=== PATIENT | female | born 1940 | race Caucasian/White ===

== ENCOUNTER 2019-07-26 12:00 | Outpatient (CLI) | payer MEDICARE, OTHER ==
[~2019-07-26] VITALS: Ht 149.9 cm; Wt 69.5 kg
[2019-07-26 12:05] VITALS: BP 167/76
[2019-07-26] MEDS ORDERED: IRON SUCROSE 25 MG in NS 50 ML IV ONE (12:45)
[2019-07-26] MEDS ORDERED: IRON SUCROSE 175 MG in NS 100 ML IV ONE (12:45)
[2019-07-26 12:55] VITALS: BP 132/61
[2019-07-26 13:45] VITALS: BP 127/60
[2019-07-26] MEDS ORDERED: BUME2TAB3 PO (14:16)
[2019-07-26] MEDS ORDERED: ADCI20TA PO (14:16)
[2019-07-26] MEDS ORDERED: PANT40TA3 PO (14:17)
[2019-07-26] MEDS ORDERED: D3400CAP PO (14:17)
[2019-07-26] MEDS ORDERED: PRAV40TA2 PO (14:17)
[2019-07-26] MEDS ORDERED: FERR325T3 PO (14:19)
[2019-07-26] MEDS ORDERED: MULTCAP PO (14:20)
[2019-07-26] MEDS ORDERED: PROBCAP14 PO (14:20)
[2019-07-26] MEDS ORDERED: OCUVCAP2 PO (14:21)
[2019-07-26 15:00] VITALS: BP 128/60
== END 2019-07-26 15:00 | disposition home or self-care (01) ==
LOC: M INFU 12:00
PROVIDERS: ATTEND Internal Medicine Critical Care Medicine
DX: D60.9 Acquired pure red cell aplasia, unspecified (principal)
CPT/HCPCS: 96365; 96366; J1756

== ENCOUNTER 2019-08-02 11:37 | Outpatient (CLI) | payer MEDICARE, OTHER ==
[~2019-08-02] VITALS: Ht 149.9 cm; Wt 69.5 kg
[~2019-08-02 11:37] MED LIST: ADCI20TA PO; BUME2TAB3 PO; D3400CAP PO; FERR325T3 PO; MULTCAP PO; OCUVCAP2 PO; PANT40TA3 PO; PRAV40TA2 PO; PROBCAP14 PO
[2019-08-02 11:40] VITALS: BP 121/58
[2019-08-02] MEDS ORDERED: IRON SUCROSE 200 MG in NS 100 ML OVER 1 HR IV ONE (12:00)
[2019-08-02 12:15] VITALS: BP 123/60
[2019-08-02 12:30] VITALS: BP 122/66
[2019-08-02 13:30] VITALS: BP 135/63
[2019-08-02 14:30] VITALS: BP 122/55
[2019-08-02 15:15] VITALS: BP 110/57
== END 2019-08-02 15:35 ==
LOC: M INFU 11:37
PROVIDERS: ATTEND Internal Medicine Critical Care Medicine
DX: D50.9 Iron deficiency anemia, unspecified (principal); Z79.899 Other long term (current) drug therapy
CPT/HCPCS: 96365; 96366; J1756

== ENCOUNTER 2019-08-09 11:36 | Outpatient (CLI) | payer MEDICARE, OTHER ==
[~2019-08-09] VITALS: Ht 149.9 cm; Wt 69.5 kg
[2019-08-09 10:45] VITALS: BP 120/66
[2019-08-09 11:45] VITALS: BP 143/77
[2019-08-09] MEDS ORDERED: IRON SUCROSE 200 MG in NS 100 ML OVER 1 HR IV ONE (12:30)
[2019-08-09] MEDS ORDERED: LETA1TAB PO (12:46)
[2019-08-09 13:45] VITALS: BP 132/61
[2019-08-09 14:05] VITALS: BP 119/92
== END 2019-08-09 14:05 | disposition home or self-care (01) ==
LOC: M INFU 11:36
PROVIDERS: ATTEND Internal Medicine Critical Care Medicine
DX: D50.9 Iron deficiency anemia, unspecified (principal)
CPT/HCPCS: 96365; 96366; J1756

== ENCOUNTER 2019-08-16 10:54 | Outpatient (CLI) | payer MEDICARE, OTHER ==
[~2019-08-16] VITALS: Ht 149.9 cm; Wt 69.5 kg
[~2019-08-16 10:54] MED LIST changes: +LETA1TAB PO
[2019-08-16 10:55] VITALS: BP 132/63
[2019-08-16] MEDS ORDERED: IRON SUCROSE 200 MG in NS 100 ML OVER 1 HR IV ONE (11:15)
[2019-08-16 12:45] VITALS: BP 123/58
[2019-08-16 13:15] VITALS: BP 134/62
[2019-08-16 13:45] VITALS: BP 113/69
== END 2019-08-16 13:45 | disposition home or self-care (01) ==
LOC: M INFU 10:54
PROVIDERS: ATTEND Internal Medicine Critical Care Medicine
DX: D50.9 Iron deficiency anemia, unspecified (principal)
CPT/HCPCS: 96365; 96366; J1756

== ENCOUNTER 2020-07-20 08:48 | Outpatient (CLI) | payer MEDICARE, OTHER ==
[~2020-07-20] VITALS: Ht 149.9 cm; Wt 69.5 kg
[~2020-07-20 08:48] MED LIST changes: +PANT40TA29 PO; -PANT40TA3 PO
[2020-07-20] MEDS ORDERED: IRON SUCROSE 200 MG in NS 100 ML OVER 1 HR IV ONE (09:00)
[2020-07-20 09:11] VITALS: BP 153/67
[2020-07-20] MEDS ORDERED: SLOW142T5 PO (09:30)
[2020-07-20 10:30] VITALS: BP 135/70
[2020-07-20 12:00] VITALS: BP 152/72
== END 2020-07-20 12:00 | disposition home or self-care (01) ==
LOC: M INFU 08:48
PROVIDERS: ATTEND Internal Medicine Critical Care Medicine
DX: D50.9 Iron deficiency anemia, unspecified (principal)
CPT/HCPCS: 96365; 96366; J1756

== ENCOUNTER 2020-07-27 08:48 | Outpatient (CLI) | payer MEDICARE, OTHER ==
[~2020-07-27] VITALS: Ht 149.9 cm; Wt 69.5 kg
[~2020-07-27 08:48] MED LIST changes: +SLOW142T5 PO
[2020-07-27] MEDS ORDERED: IRON SUCROSE 200 MG in NS 100 ML OVER 1 HR IV ONE (09:00)
[2020-07-27 09:01] VITALS: BP 144/65
[2020-07-27 11:10] VITALS: BP 132/62
== END 2020-07-27 11:10 | disposition home or self-care (01) ==
LOC: M INFU 08:48
PROVIDERS: ATTEND Internal Medicine Critical Care Medicine
DX: D50.9 Iron deficiency anemia, unspecified (principal)
CPT/HCPCS: 96365; 96366; J1756

== ENCOUNTER 2020-08-03 09:15 | Outpatient (CLI) | payer MEDICARE, OTHER ==
[~2020-08-03] VITALS: Ht 149.9 cm; Wt 69.5 kg
[2020-08-03 09:20] VITALS: BP 173/73
[2020-08-03] MEDS ORDERED: IRON SUCROSE 200 MG in NS 100 ML OVER 1 HR IV ONE (09:30)
[2020-08-03 10:12] VITALS: BP 137/69
[2020-08-03 11:25] VITALS: BP 141/61
== END 2020-08-03 11:25 | disposition home or self-care (01) ==
LOC: M INFU 09:15
PROVIDERS: ATTEND Internal Medicine Critical Care Medicine
DX: D50.9 Iron deficiency anemia, unspecified (principal)
CPT/HCPCS: 96365; J1756

== ENCOUNTER 2020-08-10 09:04 | Outpatient (CLI) | payer MEDICARE, OTHER ==
[~2020-08-10] VITALS: Ht 149.9 cm; Wt 69.5 kg
[~2020-08-10 09:04] MED LIST changes: +IRON SUCROSE 200 MG in NS 100 ML OVER 1 HR IV ONE
[2020-08-10 09:05] VITALS: BP 124/86
[2020-08-10 10:45] VITALS: BP 137/91
== END 2020-08-10 10:45 | disposition home or self-care (01) ==
LOC: M INFU 09:04
PROVIDERS: ATTEND Internal Medicine Critical Care Medicine
DX: D50.9 Iron deficiency anemia, unspecified (principal); Z79.899 Other long term (current) drug therapy
CPT/HCPCS: 96365; J1756

== ENCOUNTER 2020-08-17 08:56 | Outpatient (CLI) | payer MEDICARE, OTHER ==
[~2020-08-17] VITALS: Ht 149.9 cm; Wt 69.5 kg
[~2020-08-17 08:56] MED LIST changes: -IRON SUCROSE 200 MG in NS 100 ML OVER 1 HR IV ONE
[2020-08-17 09:22] VITALS: BP 162/73
[2020-08-17] MEDS: IRON SUCROSE 200 MG in NS 100 ML OVER 1 HR IV ONE (09:24)
[2020-08-17 10:35] VITALS: BP 131/78
== END 2020-08-17 10:35 ==
LOC: M INFU 08:56
PROVIDERS: ATTEND Internal Medicine Critical Care Medicine
DX: D50.0 Iron deficiency anemia secondary to blood loss (chronic) (principal); Z79.899 Other long term (current) drug therapy
CPT/HCPCS: 96365; J1756

== ENCOUNTER 2021-08-17 11:07 | Outpatient (CLI) | payer MEDICARE, OTHER ==
[~2021-08-17] VITALS: Ht 147.3 cm; Wt 69.5 kg
[~2021-08-17 11:07] MED LIST changes: +IRON SUCROSE 200 MG in NS 100 ML OVER 1 HR IV ONE
[2021-08-17 11:44] VITALS: BP 116/59
[2021-08-17 12:00] VITALS: BP 129/58
[2021-08-17 12:58] VITALS: BP 118/59
== END 2021-08-17 13:00 | disposition home or self-care (01) ==
LOC: M INFU 11:07
PROVIDERS: ATTEND Internal Medicine Critical Care Medicine
DX: D50.9 Iron deficiency anemia, unspecified (principal)
CPT/HCPCS: 96365; J1756

== ENCOUNTER 2021-08-24 10:58 | Outpatient (CLI) | payer MEDICARE, OTHER ==
[~2021-08-24 10:58] MED LIST changes: -IRON SUCROSE 200 MG in NS 100 ML OVER 1 HR IV ONE
[2021-08-24] MEDS ORDERED: IRON SUCROSE 200 MG in NS 100 ML OVER 1 HR IV ONE (11:00)
[2021-08-24 11:05] VITALS: BP 103/55
[2021-08-24 12:30] VITALS: BP 99/52
== END 2021-08-24 12:30 | disposition home or self-care (01) ==
LOC: M INFU 10:58
PROVIDERS: ATTEND Internal Medicine Critical Care Medicine
DX: D50.9 Iron deficiency anemia, unspecified (principal)
CPT/HCPCS: 96365; J1756

== ENCOUNTER 2021-08-31 11:12 | Outpatient (CLI) | payer MEDICARE, OTHER ==
[~2021-08-31] VITALS: Ht 147.3 cm; Wt 65.3 kg
[~2021-08-31 11:12] MED LIST changes: +IRON SUCROSE 200 MG in NS 100 ML OVER 1 HR IV ONE
[2021-08-31 11:40] VITALS: BP 157/59
[2021-08-31 12:11] VITALS: BP 125/63
[2021-08-31 12:58] VITALS: BP 114/53
== END 2021-08-31 13:00 | disposition home or self-care (01) ==
LOC: M INFU 11:12
PROVIDERS: ATTEND Internal Medicine Critical Care Medicine
DX: D50.0 Iron deficiency anemia secondary to blood loss (chronic) (principal)
CPT/HCPCS: 96365; J1756

== ENCOUNTER 2021-09-07 10:47 | Outpatient (CLI) | payer MEDICARE, OTHER ==
[~2021-09-07] VITALS: Ht 147.3 cm; Wt 65.3 kg
[~2021-09-07 10:47] MED LIST changes: -IRON SUCROSE 200 MG in NS 100 ML OVER 1 HR IV ONE
[2021-09-07] MEDS ORDERED: IRON SUCROSE 200 MG in NS 100 ML OVER 1 HR IV ONE (11:00)
[2021-09-07 12:34] VITALS: BP 116/59
== END 2021-09-07 12:35 | disposition home or self-care (01) ==
LOC: M INFU 10:47
PROVIDERS: ATTEND Internal Medicine Critical Care Medicine
DX: D50.0 Iron deficiency anemia secondary to blood loss (chronic) (principal)
CPT/HCPCS: 96365; J1756

== ENCOUNTER 2021-09-14 10:59 | Outpatient (CLI) | payer MEDICARE, OTHER ==
[~2021-09-14] VITALS: Ht 149.9 cm; Wt 65.3 kg
[2021-09-14] MEDS ORDERED: IRON SUCROSE 200 MG in NS 100 ML OVER 1 HR IV ONE (11:00)
[2021-09-14 11:15] VITALS: BP 129/60
[2021-09-14 12:50] VITALS: BP 131/61
== END 2021-09-14 12:50 | disposition home or self-care (01) ==
LOC: M INFU 10:59
PROVIDERS: ATTEND Internal Medicine Critical Care Medicine
DX: D50.0 Iron deficiency anemia secondary to blood loss (chronic) (principal)
CPT/HCPCS: 96365; J1756

== ENCOUNTER 2022-08-30 10:33 | Outpatient (CLI) | payer MEDICARE, OTHER ==
[~2022-08-30] VITALS: Ht 149.9 cm; Wt 65.3 kg
[~2022-08-30 10:33] MED LIST changes: +IRON SUCROSE 200 MG in NS 100 ML OVER 1 HR IV ONE
[2022-08-30 10:45] VITALS: BP 127/71
[2022-08-30] MEDS ORDERED: ELIQ2.5T PO (11:24)
[2022-08-30 12:15] VITALS: BP 132/68
== END 2022-08-30 12:15 | disposition home or self-care (01) ==
LOC: M INFU 10:33
PROVIDERS: ATTEND Internal Medicine Critical Care Medicine
DX: D50.0 Iron deficiency anemia secondary to blood loss (chronic) (principal)
CPT/HCPCS: 96365; J1756

== ENCOUNTER 2022-09-20 11:00 | Outpatient (CLI) | payer MEDICARE, OTHER ==
[~2022-09-20] VITALS: Ht 149.9 cm; Wt 65.3 kg
[2022-09-20 11:00] VITALS: BP 135/61
[~2022-09-20 11:00] MED LIST changes: +ELIQ2.5T PO
[2022-09-20 12:54] VITALS: BP 153/72
== END 2022-09-20 12:55 | disposition home or self-care (01) ==
LOC: M INFU 11:00
PROVIDERS: ATTEND Internal Medicine Critical Care Medicine
DX: D50.0 Iron deficiency anemia secondary to blood loss (chronic) (principal)
CPT/HCPCS: 96365; J1756

== ENCOUNTER 2022-10-17 10:50 | Outpatient (CLI) | payer MEDICARE, OTHER ==
[~2022-10-17] VITALS: Ht 149.9 cm; Wt 63.6 kg
[2022-10-17 10:50] VITALS: BP 104/60
[2022-10-17] MEDS ORDERED: IRON SUCROSE 200 MG in NS 100 ML OVER 1 HR IV ONE (11:00)
[2022-10-17 12:45] VITALS: BP 140/76
== END 2022-10-17 12:45 | disposition home or self-care (01) ==
LOC: M INFU 10:50
PROVIDERS: ATTEND Internal Medicine Critical Care Medicine
DX: D50.0 Iron deficiency anemia secondary to blood loss (chronic) (principal)
CPT/HCPCS: 96365; J1756

== ENCOUNTER 2022-10-24 11:05 | Outpatient (CLI) | payer MEDICARE, OTHER ==
[~2022-10-24] VITALS: Ht 149.9 cm; Wt 65.8 kg
[~2022-10-24 11:05] MED LIST changes: -IRON SUCROSE 200 MG in NS 100 ML OVER 1 HR IV ONE
[2022-10-24 11:15] VITALS: BP 121/63
[2022-10-24] MEDS ORDERED: IRON SUCROSE 200 MG in NS 100 ML OVER 1 HR IV ONE (11:30)
[2022-10-24 12:45] VITALS: BP 131/61
== END 2022-10-24 12:45 | disposition home or self-care (01) ==
LOC: M INFU 11:05
PROVIDERS: ATTEND Internal Medicine Critical Care Medicine
DX: D50.9 Iron deficiency anemia, unspecified (principal)
CPT/HCPCS: 96365; J1756

== ENCOUNTER 2023-08-14 13:42 | Outpatient (CLI) | payer MEDICARE, OTHER ==
[2023-08-14 14:00] VITALS: BP 150/67; O2SAT 95
[2023-08-14] MEDS ORDERED: IRON SUCROSE 200 MG in NS 100 ML IV ONE (14:00)
[2023-08-14 15:45] VITALS: BP 155/89; O2SAT 96
== END 2023-08-14 15:45 ==
LOC: M INFU 13:42
PROVIDERS: ATTEND Internal Medicine Critical Care Medicine
DX: D64.9 Anemia, unspecified (principal)
CPT/HCPCS: 96365; J1756

== ENCOUNTER 2023-08-21 14:00 | Outpatient (CLI) | payer MEDICARE, OTHER ==
[~2023-08-21] VITALS: Ht 147.3 cm; Wt 67.5 kg
[2023-08-21 13:55] VITALS: BP 138/74; O2SAT 97
[~2023-08-21 14:00] MED LIST changes: +IRON SUCROSE 200 MG in NS 100 ML OVER 1 HR IV ONE
[2023-08-21 15:55] VITALS: BP 140/70; O2SAT 98
== END 2023-08-21 15:53 | disposition home or self-care (01) ==
LOC: M INFU 14:00
PROVIDERS: ATTEND Internal Medicine Critical Care Medicine
DX: D64.9 Anemia, unspecified (principal)
CPT/HCPCS: 96365; J1756

== ENCOUNTER 2023-09-04 14:00 | Outpatient (CLI) | payer MEDICARE, OTHER ==
[~2023-09-04] VITALS: Ht 147.3 cm; Wt 67.5 kg
[2023-09-04 14:00] VITALS: BP 178/77; O2SAT 95
[2023-09-04 15:50] VITALS: BP 162/83; O2SAT 96
== END 2023-09-04 15:50 ==
LOC: M INFU 14:00
PROVIDERS: ATTEND Internal Medicine Critical Care Medicine
DX: D64.9 Anemia, unspecified (principal)
CPT/HCPCS: 96365; J1756

== ENCOUNTER 2023-09-11 13:35 | Outpatient (CLI) | payer MEDICARE, OTHER ==
[~2023-09-11] VITALS: Ht 147.3 cm; Wt 67.5 kg
[~2023-09-11 13:35] MED LIST changes: -IRON SUCROSE 200 MG in NS 100 ML OVER 1 HR IV ONE
[2023-09-11] MEDS ORDERED: IRON SUCROSE 200 MG in NS 100 ML OVER 1 HR IV ONE (14:00)
[2023-09-11 14:07] VITALS: BP 154/69; O2SAT 97
[2023-09-11 15:25] VITALS: BP 141/62; O2SAT 98
== END 2023-09-11 15:25 | disposition home or self-care (01) ==
LOC: M INFU 13:35
PROVIDERS: ATTEND Internal Medicine Critical Care Medicine
DX: D64.9 Anemia, unspecified (principal)
CPT/HCPCS: 96365; J1756

== ENCOUNTER 2023-09-18 12:45 | Outpatient (CLI) | payer MEDICARE, OTHER ==
[~2023-09-18] VITALS: Ht 147.3 cm; Wt 67.5 kg
[2023-09-18] MEDS ORDERED: IRON SUCROSE 200 MG in NS 100 ML OVER 1 HR IV ONE (13:30)
[2023-09-18 13:54] VITALS: BP 120/86; O2SAT 94
[2023-09-18 15:00] VITALS: BP 132/72; O2SAT 95
== END 2023-09-18 15:00 ==
LOC: M INFU 12:45
PROVIDERS: ATTEND Internal Medicine Critical Care Medicine
DX: D50.9 Iron deficiency anemia, unspecified (principal)
CPT/HCPCS: 96365; J1756

== ENCOUNTER 2024-07-23 12:14 | Outpatient (CLI) | payer MEDICARE, OTHER ==
[~2024-07-23] VITALS: Ht 147.3 cm; Wt 63.6 kg
[2024-07-23 12:20] VITALS: BP 158/69; O2SAT 93
[2024-07-23] MEDS: IRON SUCROSE 300 MG in NS 250 ML OVER 90 MIN. IV ONE (13:14)
[2024-07-23 14:50] VITALS: BP 124/79; O2SAT 96
== END 2024-07-23 14:50 ==
LOC: M INFU 12:14
PROVIDERS: ATTEND Internal Medicine Critical Care Medicine
DX: D50.9 Iron deficiency anemia, unspecified (principal)
CPT/HCPCS: 96365; 96366; J1756

== ENCOUNTER 2024-07-30 12:30 | Outpatient (CLI) | payer MEDICARE, OTHER ==
[~2024-07-30] VITALS: Ht 149.9 cm; Wt 64.0 kg
[2024-07-30 12:35] VITALS: BP 142/79; O2SAT 93
[2024-07-30] MEDS: IRON SUCROSE 300 MG in NS 250 ML OVER 90 MIN. IV ONE (12:43)
[2024-07-30 14:20] VITALS: BP 151/70; O2SAT 96
== END 2024-07-30 14:30 ==
LOC: M INFU 12:30
PROVIDERS: ATTEND Internal Medicine Critical Care Medicine
DX: D50.9 Iron deficiency anemia, unspecified (principal)
CPT/HCPCS: 96365; 96366; J1756

== ENCOUNTER 2024-08-06 12:05 | Outpatient (CLI) | payer MEDICARE, OTHER ==
[~2024-08-06] VITALS: Ht 149.9 cm; Wt 64.0 kg
[2024-08-06 12:10] VITALS: BP 153/65; O2SAT 96
[2024-08-06] MEDS: IRON SUCROSE 300 MG in NS 250 ML IV ONE (13:37)
[2024-08-06] MEDS ORDERED: TADA5TAB PO (13:41)
[2024-08-06 15:18] VITALS: BP 183/74; O2SAT 93
== END 2024-08-06 15:20 ==
LOC: M INFU 12:05
PROVIDERS: ATTEND Internal Medicine Critical Care Medicine
DX: D50.9 Iron deficiency anemia, unspecified (principal)
CPT/HCPCS: 96365; 96366; J1756

== ENCOUNTER 2024-08-13 12:15 | Outpatient (CLI) | payer MEDICARE, OTHER ==
[~2024-08-13] VITALS: Ht 180.3 cm; Wt 64.0 kg
[2024-08-13 12:15] VITALS: BP 148/68; O2SAT 96
[~2024-08-13 12:15] MED LIST changes: +TADA5TAB PO
[2024-08-13] MEDS: IRON SUCROSE 300 MG in NS 250 ML IV ONE (13:27)
[2024-08-13 15:05] VITALS: BP 135/65; O2SAT 95
== END 2024-08-13 15:05 ==
LOC: M INFU 12:15
PROVIDERS: ATTEND Family Medicine
DX: D50.9 Iron deficiency anemia, unspecified (principal)
CPT/HCPCS: 96365; 96366; J1756

== ENCOUNTER 2025-08-04 09:08 | Outpatient (CLI) | payer MEDICARE, OTHER ==
[~2025-08-04] VITALS: Ht 147.3 cm; Wt 65.5 kg
[~2025-08-04 09:08] MED LIST changes: +ALBUTEROL SULFATE 2.5 MG/0.5 ML INH CONCENTRATE NEB SOLN INH PRN; +EPINEPHrine INJ 1 MG/ML 1ML AMP IM PRN; -PRAV40TA2 PO; +PRAV40TA85 PO; -TADA5TAB PO; +TADA5TAB2 PO; +diphenhydrAMINE 50 MG/ML VIAL IV PRN
[2025-08-04 09:40] VITALS: BP 128/57; O2SAT 97
[2025-08-04] MEDS: IRON SUCROSE 200 MG IVP IV ONE (09:43)
[2025-08-04 10:20] VITALS: BP 141/65; O2SAT 94
== END 2025-08-04 10:30 ==
LOC: M INFU 09:08
PROVIDERS: ATTEND Internal Medicine Critical Care Medicine
DX: D50.9 Iron deficiency anemia, unspecified (principal)
CPT/HCPCS: 96374; J1756

== ENCOUNTER 2025-08-11 09:03 | Outpatient (CLI) | payer MEDICARE, OTHER ==
[~2025-08-11] VITALS: Ht 147.3 cm; Wt 65.9 kg
[2025-08-11 09:20] VITALS: BP 136/65; O2SAT 95
[2025-08-11] MEDS: IRON SUCROSE 200 MG IVP IV ONE (09:47)
[2025-08-11 10:17] VITALS: BP 141/90; O2SAT 93
== END 2025-08-11 10:17 | disposition home or self-care (01) ==
LOC: M INFU 09:03
PROVIDERS: ATTEND Internal Medicine Critical Care Medicine
DX: D50.9 Iron deficiency anemia, unspecified (principal)
CPT/HCPCS: 96374; J1756

== ENCOUNTER 2025-08-18 09:10 | Outpatient (CLI) | payer MEDICARE, OTHER ==
[~2025-08-18] VITALS: Ht 147.3 cm; Wt 62.0 kg
[2025-08-18 09:10] VITALS: BP 137/69; O2SAT 95
[2025-08-18] MEDS: IRON SUCROSE 200 MG IVP IV ONE (09:36)
[2025-08-18 10:10] VITALS: BP 137/61; O2SAT 95
== END 2025-08-18 10:15 | disposition home or self-care (01) ==
LOC: M INFU 09:10
PROVIDERS: ATTEND Internal Medicine Critical Care Medicine
DX: D50.9 Iron deficiency anemia, unspecified (principal)
CPT/HCPCS: 96374; J1756

== ENCOUNTER 2025-08-25 09:49 | Outpatient (CLI) | payer MEDICARE, OTHER ==
[2025-08-25] MEDS: IRON SUCROSE 200MG IVP IV ONE (09:41)
[2025-08-25 10:20] VITALS: BP 138/61; O2SAT 99
[2025-08-25 10:35] VITALS: BP 141/68; O2SAT 98
== END 2025-08-25 10:35 ==
LOC: M INFU 09:49
PROVIDERS: ATTEND Internal Medicine Critical Care Medicine
DX: D50.9 Iron deficiency anemia, unspecified (principal)
CPT/HCPCS: 96374; J1756

== ENCOUNTER 2025-09-01 09:26 | Outpatient (CLI) | payer MEDICARE, OTHER ==
[~2025-09-01] VITALS: Ht 142.2 cm; Wt 64.5 kg
[2025-09-01] MEDS: IRON SUCROSE 200MG IVP IV ONE (09:53)
[2025-09-01 10:04] VITALS: BP 140/63; O2SAT 95
[2025-09-01 10:34] VITALS: BP 119/47; O2SAT 94
== END 2025-09-01 10:35 | disposition home or self-care (01) ==
LOC: M INFU 09:26
PROVIDERS: ATTEND Internal Medicine Critical Care Medicine
DX: D50.9 Iron deficiency anemia, unspecified (principal)
CPT/HCPCS: 96374; J1756